=== PATIENT | female | born 1990 | race Caucasian/White ===

== ENCOUNTER 2017-04-22 23:07 | Emergency (ER) | payer SELFPAY ==
[2017-04-22 23:08] VITALS: BP 113/76; PULSE 98; RESP 14; TEMP 37.1; O2SAT 98; BMI 23.5
[2017-04-22] MEDS: 0.9% Normal Saline 1,000 ML 1000 ML IV (23:43)
[2017-04-22] MEDS: Ketorolac 30 MG/ML Syringe IV (23:45)
[2017-04-23] LABS: Absolute Neutrophil Count 6.6 X10^3/uL (2.0-7.7); Basophil# 0.02 X10^3/uL; Basophil% 0.2 % (0-1); Eosinophil# 0.39 X10^3/uL; Hematocrit 37.9 % (37-47); Lymphocyte % 19.3 % (19-41); Mean Corp Hgb Conc 31.7 g/gl (32-36); Mean Corpuscular Hgb 30.2 pg (27.0-32.0); Mean Corpuscular Volume 95.5 fL (81-99); Mean Platelet Vol. 9.3 fl (6.2-12.0); Monocyte# 0.91 X10^3/uL; Monocyte% 9.2 % (0-10); Neutrophil # 6.61 X10^3/uL (2.7-7.7); Neutrophil % 67.2 % (47-70); POSITIVE COUNT NO; POSITIVE DIFFERENTIAL NO; POSITIVE MORPHOLOGY NO; Platelet Count 313 K/mm3 (150-450); RBC Distribution Width CV 12.8 % (11.6-14.6); RBC Distribution Width SD 44.5 fl (35.1-43.9); Red Blood Count 3.97 M/mm3 (4.2-5.4); White Blood Count 9.8 K/mm3 (4.4-11.0)
--- NOTE | 2017-04-23 00:09 | ED.DCSUM_ITS ---
- ER Visit Summary Date of Service: 04/23/17 Chief Complaint: Abdominal pain History of Present Illness: The patient is a 27 F who presents with abdominal pain. It is been present for a week and a half. She has a history of ulcerative colitis. She states this feels similar to prior colitis flares. She reports initially up to 20 episodes of diarrhea per day. This improved and she only had 5 yesterday. She has had bright red blood per rectum with diarrhea. She states she is also had diffuse sharp stabbing abdominal pain. This has been improved with use of ibuprofen. However her pain worsened tonight so she presented here and she also a temperature of 100.3. She reports nausea without vomiting. Physical Examination: Afebrile vitals are unremarkable Moist mucous membranes Heart regular rate and rhythm Lungs are clear Abdomen soft nondistended she has some diffuse nonfocal tenderness but no guarding no rebound she does not appear to have a surgical abdomen Test Results: CBC normal. CMP and lipase unremarkable. Emergency Department Course and Treatment: Patient was treated with IV fluids Toradol and Phenergan. Patient is resting comfortably on reevaluation and does report symptomatic improvement. Given benign abdominal examination lack of fever or leukocytosis I do not believe imaging is necessary as I have very low clinical suspicion for acute surgical complication. Patient was given a prescription for prednisone, Cipro, Flagyl. She was advised to call Dr. Gonzales for outpatient follow-up. She understands return for new or worsening symptoms and was instructed on specific signs and symptoms to monitor for. All questions answered at bedside. Patient agreeable to plan. Treatment Plan: [] Disposition: Discharge Impression: Ulcerative colitis exacerbation This note was generated with [employer] dictation software. It may contain incorrect words, spelling, and punctuation that were not noted in review of the chart prior to signing ED Disposition - Plan for ED Patient: Chief Complaint: Abd Pain Referrals: Carlton Johnson DO [Primary Care Provider] -
[2017-04-23 00:17] LABS: ALB/GLOB Ratio 0.8 RATIO (0.9-2.4); AST(SGOT) 14 U/L (15-37); Alanine Aminotransfer ALT/SGPT 24 U/L (13-56); Albumin, Serum 3.1 g/dL (3.2-5.0); Alkaline Phosphatase 61 U/L (45-117); Anion Gap 8 (5-15); BUN 9 mg/dL (7-18); BUN/Creat Ratio 13.9 RATIO (10-20); Calcium,Total 8.5 mg/dL (8.5-10.1); Chloride 108 mmol/L (98-107); Creatinine, Serum 0.65 mg/dL (0.55-1.02); EST Glomerular Filtration Rate 115 mL/min (>60); Est Glom Filt Rate - Afr Amer 139 mL/min (>60); Estimated Creatinine Clearance 124.19 ml/min; Globulin 3.8 g/dL (2.2-4.2); Glucose 113 mg/dL (74-106); Lipase 203 U/L (73-393); Potassium 3.8 mmol/L (3.5-5.1); Protein, Total 6.9 g/dL (6.4-8.2); Sodium Level 141 mmol/L (136-145)
--- NOTE | 2017-04-23 00:25 | ED.DEP ---
ED Disposition - Plan for ED Patient: Chief Complaint: Abd Pain Instructions: ED Colitis Ulcerative Prescriptions: Prednisone [Deltasone] 60 mg PO DAILY #15 tab Ciprofloxacin [Cipro] 500 mg PO BID #14 tab Metronidazole [Flagyl] 500 mg PO TID #21 tab Referrals: Carlton Johnson DO [Primary Care Provider] - Glenroy Gonzales MD [STAFF PHYSICIAN] - Luis Gaston MD [STAFF PHYSICIAN] -
[2017-04-23 00:42] VITALS: BP 105/63; PULSE 82; RESP 16; O2SAT 97
--- NOTE | 2017-04-23 00:43 | ED.RN ---
IV SITE REMOVED, CATHETER TIP INTACT. BLEEDING CONTROLLED. DRESSING APPLIED TO THE SITE. PATIENT AND SPOUSE GIVEN VERBAL DISCHARGE INSTRUCTIONS. VERBAL UNDERSTANDING AT THIS TIME.
== END 2017-04-23 00:43 | disposition home or self-care (01) ==
PROVIDERS: Emergency Provider Emergency Medicine; Family Provider Student in an Organized Health Care Education/Training Program; PCP Student in an Organized Health Care Education/Training Program
DX: K51.911 Ulcerative colitis, unspecified with rectal bleeding (principal)
CPT/HCPCS: 80053; 83690; 85025; 96361; 96374; 96375; 99283; J7030; A4216

== ENCOUNTER 2017-05-10 13:22 | Inpatient (IN) | payer SELFPAY ==
[2017-05-10] VITALS (8 sets, daily range): BP systolic 94–107; BP diastolic 48–66; PULSE 94–129; RESP 14–18; TEMP 36.9–38.8; O2SAT 95–100; BMI 23.5; BMI 26.1
[2017-05-10] MEDS: 0.9% Normal Saline 1,000 ML 1000 ML IV (14:12)
[2017-05-10] MEDS: Ondansetron 4 MG/2 ML Vial IV ×3 (14:12→18:54)
[2017-05-10 14:26] LABS: Absolute Neutrophil Count 7.5 X10^3/uL (2.0-7.7); Basophil# 0.02 X10^3/uL; Basophil% 0.2 % (0-1); Eosinophil# 0.05 X10^3/uL; Eosinophils% 0.5 % (0-5); Hematocrit 38.5 % (37-47); Hemoglobin 12.2 g/dl (12.0-15.0); Lymphocyte % 12.3 % (19-41); Mean Corp Hgb Conc 31.7 g/gl (32-36); Mean Corpuscular Hgb 29.9 pg (27.0-32.0); Mean Corpuscular Volume 94.4 fL (81-99); Monocyte# 0.92 X10^3/uL; Monocyte% 9.5 % (0-10); Neutrophil # 7.52 X10^3/uL (2.7-7.7); Neutrophil % 77.4 % (47-70); Platelet Count 382 K/mm3 (150-450); RBC Distribution Width CV 13.2 % (11.6-14.6); Red Blood Count 4.08 M/mm3 (4.2-5.4); White Blood Count 9.7 K/mm3 (4.4-11.0)
[2017-05-10 14:28] LABS: POSITIVE COUNT NO; POSITIVE DIFFERENTIAL NO; POSITIVE MORPHOLOGY NO
[2017-05-10 14:47] LABS: ALB/GLOB Ratio 0.9 RATIO (0.9-2.4); AST(SGOT) 10 U/L (15-37); Alanine Aminotransfer ALT/SGPT 25 U/L (13-56); Albumin, Serum 2.9 g/dL (3.2-5.0); Alkaline Phosphatase 47 U/L (45-117); Anion Gap 8 (5-15); BUN 14 mg/dL (7-18); BUN/Creat Ratio 16.8 RATIO (10-20); Calcium,Total 7.6 mg/dL (8.5-10.1); Chloride 100 mmol/L (98-107); Creatinine, Serum 0.84 mg/dL (0.55-1.02); EST Glomerular Filtration Rate 86 mL/min (>60); Est Glom Filt Rate - Afr Amer 104 mL/min (>60); Globulin 3.3 g/dL (2.2-4.2); Glucose 128 mg/dL (74-106); Potassium 3.1 mmol/L (3.5-5.1); Protein, Total 6.2 g/dL (6.4-8.2); Sodium Level 134 mmol/L (136-145)
[2017-05-10 14:48] LABS: Lactic Acid 1.3 mmol/L (0.4-2.0)
[2017-05-10 14:50] LABS: Pregnancy, Serum, hCG Quali. NEGATIVE Negative (0-9 Nonpreg)
--- NOTE | 2017-05-10 15:35 | CT_ITS ---
STUDY: CT ABDOMEN AND PELVIS WITH CONTRAST REASON FOR EXAM: Female, 27 years old. Blood and mucus and stool, history of ulcerative colitis RADIATION DOSAGE (If Supplied By Facility): CTDIvol = ( 12.99 ) mGy, DLP = ( 675.79 ) mGycm TECHNIQUE: Transaxial images were obtained from the dome of the diaphragm to the symphysis pubis without oral contrast. 100 ml of Isovue 300 contrast was administered. Sagittal and coronal images were reconstructed. Individualized dose optimization techniques were used for this CT. COMPARISON: November 20, 2015 FINDINGS: The visualized lung bases are unremarkable. The visualized portions of the heart are within normal limits. The liver is normal in size. There is a small hypoattenuated nodule within the left lobe which demonstrates attenuation numbers higher than simple cyst. Bile ducts are not dilated. Normal gallbladder and extrahepatic biliary system. Normal spleen. Normal pancreas. Normal bilateral adrenal glands. Normal right kidney. Normal left kidney. Normal visualized stomach. There are multiple distended loops of small bowel within the upper abdomen with diffuse tapering distally most likely representing nonspecific focal ileus. There is no well-defined transition point to suggest partial small bowel obstruction. However there does appear to be mild submucosal thickening consistent with nonspecific enteritis There is diffuse distention of the colon containing fecal material. There does appear to be mild concentric thickening of the mauricio of the rectosigmoid without inflammatory stranding in the fat The appendix is visualized and appears normal. There are numerous mildly enlarged subcentimeter mesenteric nodes within the midabdomen in association with stranding in the fat consistent with nonspecific mesenteric lymphadenitis. Normal abdominal aorta. Normal inferior vena cava. Normal retroperitoneum. Normal urinary bladder. Uterus is slightly deviated towards the left. There is a left ovarian cyst measuring 2.34 x 1.92 cm and a small right adnexal cyst measuring approximately 2.9 x 1.36 cm Normal abdominal wall. Normal osseous structures. CT/Abdomen/Pelvis WITH Contrast IMPRESSION: Mild nonspecific enteritis in association with mesenteric lymphadenitis. No definitive evidence for small bowel obstruction. Mild thickening of the mauricio of the sigmoid colon consistent with inflammatory bowel disease although no evidence for acute inflammatory stranding at this time Incidental note made of a nodule in the left lobe of the liver which on current exam demonstrates attenuation characteristics higher than simple cyst which appears cystic on prior exam. The lesion has also decreased in size since that time. This may represent a complex cyst MRI would be helpful for further evaluation if clinically warranted. Electronically Signed: Maico Rodney MD at 16:24 EST , Service support ,
[2017-05-10 16:13] LABS: Bacteria 0 SEEN /hpf (None Seen); Mucous, Urine 0 SEEN /hpf (<or=2+); Red Blood Cells-Urine 0 SEEN /hpf (0-5)
[2017-05-10 16:16] LABS: Color, Urine Yellow (Yellow); Glucose, Dipstick Normal (Normal); Ketone-Dipstick 5 mg/dl (Negative); Leukocyte Esterase-Dipstick 25 /ul (Negative); Nitrite-Dipstick Negative (Negative); Occult Blood-Urine Negative /ul (Negative); Protein-Dipstick 30 mg/dl (Negative); Specific Gravity, Urine 1.005 (1.002-1.030); Urine Bilirubin Dipstick Negative (Negative); Urine Clarity Clear (Clear); Urine Urobilinogen Normal (Normal); Urine pH 6.5 (5.0 - 8.0)
[2017-05-10 16:33] LABS: Squamous Epithelial Cells - UA 0-5 SEEN /hpf (5-10); White Blood Cells 0-5 SEEN /hpf (0-5)
--- NOTE | 2017-05-10 16:43 | ED.VISSUMM ---
- ER Visit Summary Date of Service: 05/10/17 Chief Complaint: [Abdominal pain] History of Present Illness: The patient is a 27 F [with history of ulcerative colitis presents with abdominal pain for close to a month. Patient thought that she was having a flare of her ulcerative colitis month ago but waited 2 weeks to be seen patient apparently then was seen by emergency department and started on prednisone as well as Cipro and Flagyl. Patient initially got better while on the prednisone but then symptoms started to slowly worsen again. Patient woke up this morning vomiting and has been throwing up about every 15 minutes. Patient also complaining of watery stool that is bloody at times. Patient describes diffuse abdominal discomfort. Patient also states that she had a fever up to 104 this morning.] Physical Examination: [HEENT-PERRLA, EOMI. Cranial nerves II through XII grossly intact. TMs clear. Mucous membranes moist. No adenopathy. Cardiovascular-regular rate and rhythm without murmur or ectopy Lungs-clear to auscultation, chest wall stable without crepitus or subcu emphysema Abdomen-normoactive bowel sounds, soft patient has diffuse tenderness on palpation. More significant tenderness in the upper quadrants. There is no rebound, rigidity, or perineal signs. Extremities-intact ?4, normal range of motion, normal pulses, atraumatic] Test Results: [CBC with differential obtained showed a normal white count of 9.7, hemoglobin 12, hematocrit 38, platelets 382. Chemistries were unremarkable other than a slightly depressed potassium at 3.1 for which I did order 40 mEq potassium chloride p.o. Liver enzymes were normal. Lactate was normal 1.3. CT scan of the abdomen and pelvis with IV and p.o. contrast showed enteritis with lymph adenitis and some mild thickening of the sigmoid colon. Patient also had cyst in her liver that had gotten smaller from prior study but recommended at some point potentially obtaining an MRI to evaluate further as this may be a complex cyst.] Emergency Department Course and Treatment: [Patient was given a liter normal same fluid bolus and she was medicated with Zofran and morphine. Case will be discussed with hospitalist evaluate patient for admission. I did order stool cultures and C. difficile which patient has not been able to produce a stool since arriving in the emergency department.] Treatment Plan: [Admit for IV fluids and pain medication.] Disposition: [Admit] Impression: [Gastroenteritis Abdominal pain] This note was generated with [employer] dictation software. It may contain incorrect words, spelling, and punctuation that were not noted in review of the chart prior to signing ED Disposition - Plan for ED Patient: Chief Complaint: Abd Pain Referrals: Carlton Johnson DO [Primary Care Provider] -
--- NOTE | 2017-05-10 16:48 | ED.DCSUM_ITS ---
- ER Visit Summary Date of Service: 05/10/17 Chief Complaint: [Abdominal pain] History of Present Illness: The patient is a 27 F [with history of ulcerative colitis presents with abdominal pain for close to a month. Patient thought that she was having a flare of her ulcerative colitis month ago but waited 2 weeks to be seen patient apparently then was seen by emergency department and started on prednisone as well as Cipro and Flagyl. Patient initially got better while on the prednisone but then symptoms started to slowly worsen again. Patient woke up this morning vomiting and has been throwing up about every 15 minutes. Patient also complaining of watery stool that is bloody at times. Patient describes diffuse abdominal discomfort. Patient also states that she had a fever up to 104 this morning.] Physical Examination: [HEENT-PERRLA, EOMI. Cranial nerves II through XII grossly intact. TMs clear. Mucous membranes moist. No adenopathy. Cardiovascular-regular rate and rhythm without murmur or ectopy Lungs-clear to auscultation, chest wall stable without crepitus or subcu emphysema Abdomen-normoactive bowel sounds, soft patient has diffuse tenderness on palpation. More significant tenderness in the upper quadrants. There is no rebound, rigidity, or perineal signs. Extremities-intact ?4, normal range of motion, normal pulses, atraumatic] Test Results: [CBC with differential obtained showed a normal white count of 9.7 , hemoglobin 12, hematocrit 38, platelets 382. Chemistries were unremarkable other than a slightly depressed potassium at 3.1 for which I did order 40 mEq potassium chloride p.o. Liver enzymes were normal. Lactate was normal 1.3. CT scan of the abdomen and pelvis with IV and p.o. contrast showed enteritis with lymph adenitis and some mild thickening of the sigmoid colon. Patient also had cyst in her liver that had gotten smaller from prior study but recommended at some point potentially obtaining an MRI to evaluate further as this may be a complex cyst.] Emergency Department Course and Treatment: [Patient was given a liter normal same fluid bolus and she was medicated with Zofran and morphine. Case will be discussed with hospitalist evaluate patient for admission. I did order stool cultures and C. difficile which patient has not been able to produce a stool since arriving in the emergency department.] Treatment Plan: [Admit for IV fluids and pain medication.] Disposition: [Admit] Impression: [Gastroenteritis Abdominal pain] This note was generated with [employer] dictation software. It may contain incorrect words, spelling, and punctuation that were not noted in review of the chart prior to signing ED Disposition - Plan for ED Patient: Chief Complaint: Abd Pain Referrals: Carlton Johnson DO [Primary Care Provider] -
[2017-05-10] MEDS: oxyCODONE 5 MG Tablet PO (19:02)
[2017-05-10] MEDS: Acetaminophen 325 MG Tablet 650 MG PO (21:19)
[2017-05-10] MEDS: 0.9% NaCl Peripheral Flush Adult/Peds IV (21:20)
--- NOTE | 2017-05-10 21:45 | NURSING ---
LAB NOTIFIED OF STAT ORDERS
--- NOTE | 2017-05-10 22:17 | PCM.HP.STD ---
Problem List (1) Nausea and vomiting Status: Acute Qualifiers: Vomiting type: unspecified (2) Diarrhea Status: Acute Qualifiers: Diarrhea type: unspecified type Qualified Code(s): R19.7 - Diarrhea, unspecified (3) Blood in stool Status: Acute History of Present Illness Date of Admission: 05/10/17 Chief Complaint: Nausea and vomiting, blood in stool, diarrhea, generalized mid abdominal pain The patient is a 27 year old F who was seen in the emergency room at [facility] with complaints of bloody stools ?1 month intermittently, watery diarrhea over the past 24 hours, generalized midabdominal pain over the last 24 hours, and fever this morning-according to the patient up to 104 at home. She has a history of ulcerative colitis, she does not follow-up regularly with the GI doctor however and is on no medications chronically for her ulcerative colitis. Patient was placed on prednisone 3 weeks ago, she states she was unable to take a full dose because it made her too jittery, she was then placed on Cipro and Flagyl 2 weeks ago, and then her prednisone was restarted last week. Patient states that when she was placed on the prednisone 3 weeks ago, her symptoms improved and her blood in her stools partially resolved. Evaluation in the emergency room included labs today which showed normal white blood cell count, hemoglobin was 12.2, potassium was 3.1, patient was noted to be afebrile with a temp of 98.5, and patient a CT of her abdomen and pelvis which showed enteritis of the small intestine, nonspecific mesenteric lymphadenitis, and mild thickening of the sigmoid colon without evidence of severe inflammation. Still cannot be obtained from the patient for C. difficile testing at the time of her examination in the emergency room. Since the patient has been on oral antibiotics for 2 weeks, I feel that she most likely has a flareup of her ulcerative colitis, I have elected to admit her to [facility], treat with IV Solu-Medrol, and stop her antibiotics for now. We will obtain a C. difficile and enteric panel on the patient. IV fluids will be given to the patient and labs will be monitored. I do not feel she needs a consultation from gastroenterology at this time. Past Medical History Allergies amoxicillin trihydrate [From Augmentin] Adverse Reaction (Verified 05/10/17 13:26) Nausea/Vom/Diarrhea avocado Adverse Reaction (Verified 05/10/17 13:26) Nausea/Vom/Diarrhea potassium clavulanate [From Augmentin] Adverse Reaction (Verified 05/10/17 13:26) Nausea/Vom/Diarrhea Home Medications: Ambulatory Orders Medication Instructions Recorded Lactobacillus Combo No.10 1 each PO DAILY 12/22/15 [Probiotic] Multivit with Calcium,Iron,Min 1 each PO DAILY 12/22/15 [Multiple Vitamins For Women] Metronidazole [Flagyl] 500 mg PO TID #21 tab 04/23/17 Prednisone [Deltasone] 60 mg PO DAILY #15 tab 04/23/17 Desogestrel-Ethinyl Estradiol 1 tab PO DAILY 05/10/17 [Apri 28 Day Tablet] Surgical History: - - , D&C, wisdom tooth removal Psychiatric History: No pertinent psych hx [employer] History: No pertinent [employer] history Lives: Spouse/ Significant Other Smoking Status: Former smoker Tobacco Use: Non-smoker Alcohol: Occasional Drugs: None - *Family History Maternal History Items: - - Fibromyalgia Paternal History Items: No pertinent history Review of Systems Constitutional: Denies: Chills, Fever, Malaise, Weakness, Weight Change, Fatigue Eyes: Denies: Blurred vision, Cataracts, Conjunctivae Inflammation, Double vision, Drainage HEENT: Denies: Difficulty Hearing, Difficulty Swallowing, Dysphasia, Ear Pain, Eye Pain, Head Aches, Hearing Changes, Nasal bleeding, Nasal Congestion, Post Nasal Drip Cardiovascular: Denies: Chest Pain, Claudication, Chest Pressure, Chest Tightness, Edema, Heaviness, Palpitations Respiratory: Denies: Cough, Hemoptysis, Pleuritic Pain, Shortness of Breath, Shortness of breath at rest, Shortness of breath upon exertion Gastrointestinal: Reports: Abdominal Pain, Hematochezia, Nausea, Vomiting. Denies: Constipation, Diarrhea, Hematemesis, Melena Genitourinary: Denies: Dysuria, Frequency, Hematuria, Hesitancy, Incontinence, Nocturia, Urgency Gynecological: Denies: Breast symptoms Musculoskeletal: Denies: Back Pain, Foot Pain, Hand Pain, Joint Pain, Joint stiffness, Joint swelling, Joint Tenderness, Leg Pain Skin: Denies: Dryness, Jaundice, Pruritis, Rash Neurological: Denies: Blurred vision, Double vision, Change in Speech, Slurred speech, Difficulty swallowing, Focal weakness, Headaches, Numbness, Tingling Psychiatric: Denies: Anxiety, Depression, Homicidal Ideations, Suicidal Ideations Endocrine: Denies: Change in Body Habitus, Heat/ Cold Intolerance, Polydipsia, Polyuria Hematologic/ Lymphatic: Denies: Adenopathy, Anemia, Easy Bruising, Easy Bleeding, Petechiae, Purpura VTE Information - Inpt Only VTE Present on Admission: No VTE Mechan Device Prophylaxis: None VTE Pharm Prophylaxis ordered?: No Reason prophylaxis not ordered:: Treatment Not Indicated - low risk for VTE Patient Problems: Active and Suspected Problems Nausea and vomiting (Acute) Diarrhea (Acute) Blood in stool (Acute) - Physical Exam General: Alert, Oriented x3, Cooperative, No apparent distress, Well developed, Well nourished HEENT: Atraumatic, PERRLA, EOMI, Normocephalic Oral: Moist Mucosa Neck: Supple, No JVD, No Nuchal Rigidity, Trachea Midline, Thyroid Normal Size and Texture Lungs: Clear to auscultation, Normal air movement, No rhonchi, No wheeze, No rales Cardiovascular: Regular rate, Regular Rhythm, Normal S1, Normal S2, No murmurs Abdomen: Bowel Sounds Present, Soft, Non-Distended, Tender - Midabdominal tenderness is noted to palpation, no rebound abdominal tenderness was noted, No hernias noted Extremities: No clubbing, No cyanosis, No edema, Capillary Refill Less than 3 Seconds Skin: No rashes, No breakdown Musculoskeletal: No Tenderness to Palpation of Joints or Extremities, No Muscle Wasting Neurological: Cranial nerves II-XII grossly intact, Neuro grossly intact, Muscle tone normal, Sensory exam intact to light touch and pain, Coordination normal Psych/Mental Status: Normal Affect, Appropriate, Alert and oriented to time, place, person, mood and affect Vital Signs Temp Pulse Resp BP Pulse Ox 101.8 F H 108 H 18 107/57 L 95 05/10/17 21:24 05/10/17 21:24 05/10/17 21:24 05/10/17 21:24 05/10/17 21:24 Oxygen Delivery Method Room Air Weight: 75.705 kg Body Mass Index (BMI) 26.1 Intake and Output for Last 24 Hours 05/08/17 05/09/17 05/10/17 23:59 23:59 23:59 Intake Total 600 / 600 Balance 600 / 600 Microbiology Past 72 Hours 05/10/17 19:00 C. difficile DNA Amplification - Final Stool Assessment/Plan Active and Suspected Problems Nausea and vomiting (Acute) Diarrhea (Acute) Blood in stool (Acute) #1 acute flareup of ulcerative colitis-patient will be admitted to [facility], she will be given IV Solu-Medrol, IV fluids, she will be placed on a clear liquid diet, labs will be monitored, she will have a C. difficile test administered and an enteric stool panel gathered #2 hypokalemia-patient will be given potassium replacement if needed #3 febrile illness-etiology unclear at this point, it could be that the patient has a viral gastroenteritis or less likely she has C. difficile colitis from her antibiotic usage. Await stool testing #4 enteritis of the small intestine as indicated by CT-again this could be on the basis of a viral gastroenteritis, patient has no history of Crohn's disease. Code Visit Inpatient E&M: 39583 Init Hosp L3
[2017-05-10 22:24] LABS: Hematocrit 35.9 % (37-47); Hemoglobin 11.4 g/dl (12.0-15.0); Mean Corp Hgb Conc 31.8 g/gl (32-36); Mean Corpuscular Hgb 29.8 pg (27.0-32.0); Mean Platelet Vol. 8.9 fl (6.2-12.0); Platelet Count 289 K/mm3 (150-450); RBC Distribution Width CV 13.2 % (11.6-14.6); RBC Distribution Width SD 45.4 fl (35.1-43.9); Red Blood Count 3.82 M/mm3 (4.2-5.4); White Blood Count 6.9 K/mm3 (4.4-11.0)
[2017-05-10 22:25] LABS: Scan Indicated on CBC? Y/N NO
--- NOTE | 2017-05-10 22:27 | HP.PCM_ITS ---
Problem List (1) Nausea and vomiting Status: Acute Qualifiers: Vomiting type: unspecified (2) Diarrhea Status: Acute Qualifiers: Diarrhea type: unspecified type Qualified Code(s): R19.7 - Diarrhea, unspecified (3) Blood in stool Status: Acute History of Present Illness Date of Admission: 05/10/17 Chief Complaint: Nausea and vomiting, blood in stool, diarrhea, generalized mid abdominal pain The patient is a 27 year old F who was seen in the emergency room at [facility] with complaints of bloody stools ?1 month intermittently, watery diarrhea over the past 24 hours, generalized midabdominal pain over the last 24 hours, and fever this morning-according to the patient up to 104 at home. She has a history of ulcerative colitis, she does not follow-up regularly with the GI doctor however and is on no medications chronically for her ulcerative colitis. Patient was placed on prednisone 3 weeks ago, she states she was unable to take a full dose because it made her too jittery, she was then placed on Cipro and Flagyl 2 weeks ago, and then her prednisone was restarted last week. Patient states that when she was placed on the prednisone 3 weeks ago, her symptoms improved and her blood in her stools partially resolved. Evaluation in the emergency room included labs today which showed normal white blood cell count, hemoglobin was 12.2, potassium was 3.1, patient was noted to be afebrile with a temp of 98.5, and patient a CT of her abdomen and pelvis which showed enteritis of the small intestine, nonspecific mesenteric lymphadenitis, and mild thickening of the sigmoid colon without evidence of severe inflammation. Still cannot be obtained from the patient for C. difficile testing at the time of her examination in the emergency room. Since the patient has been on oral antibiotics for 2 weeks, I feel that she most likely has a flareup of her ulcerative colitis, I have elected to admit her to [facility], treat with IV Solu-Medrol, and stop her antibiotics for now. We will obtain a C. difficile and enteric panel on the patient. IV fluids will be given to the patient and labs will be monitored. I do not feel she needs a consultation from gastroenterology at this time. Past Medical History Allergies amoxicillin trihydrate [From Augmentin] Adverse Reaction (Verified 05/10/17 13: 26) Nausea/Vom/Diarrhea avocado Adverse Reaction (Verified 05/10/17 13:26) Nausea/Vom/Diarrhea potassium clavulanate [From Augmentin] Adverse Reaction (Verified 05/10/17 13:26 ) Nausea/Vom/Diarrhea Home Medications: Ambulatory Orders Medication Instructions Recorded Lactobacillus Combo No.10 1 each PO DAILY 12/22/15 [Probiotic] Multivit with Calcium,Iron,Min 1 each PO DAILY 12/22/15 [Multiple Vitamins For Women] Metronidazole [Flagyl] 500 mg PO TID #21 tab 04/23/17 Prednisone [Deltasone] 60 mg PO DAILY #15 tab 04/23/17 Desogestrel-Ethinyl Estradiol 1 tab PO DAILY 05/10/17 [Apri 28 Day Tablet] Surgical History: - - , D&C, wisdom tooth removal Psychiatric History: 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 Lives: Spouse/ Significant Other Smoking Status: Former smoker Tobacco Use: Non-smoker Alcohol: Occasional Drugs: None - *Family History Maternal History Items: - - Fibromyalgia Paternal History Items: No pertinent history Review of Systems Constitutional: Denies: Chills, Fever, Malaise, Weakness, Weight Change, Fatigue Eyes: Denies: Blurred vision, Cataracts, Conjunctivae Inflammation, Double vision, Drainage HEENT: Denies: Difficulty Hearing, Difficulty Swallowing, Dysphasia, Ear Pain, Eye Pain, Head Aches, Hearing Changes, Nasal bleeding, Nasal Congestion, Post Nasal Drip Cardiovascular: Denies: Chest Pain, Claudication, Chest Pressure, Chest Tightness, Edema, Heaviness, Palpitations Respiratory: Denies: Cough, Hemoptysis, Pleuritic Pain, Shortness of Breath, Shortness of breath at rest, Shortness of breath upon exertion Gastrointestinal: Reports: Abdominal Pain, Hematochezia, Nausea, Vomiting. Denies: Constipation, Diarrhea, Hematemesis, Melena Genitourinary: Denies: Dysuria, Frequency, Hematuria, Hesitancy, Incontinence, Nocturia, Urgency Gynecological: Denies: Breast symptoms Musculoskeletal: Denies: Back Pain, Foot Pain, Hand Pain, Joint Pain, Joint stiffness, Joint swelling, Joint Tenderness, Leg Pain Skin: Denies: Dryness, Jaundice, Pruritis, Rash Neurological: Denies: Blurred vision, Double vision, Change in Speech, Slurred speech, Difficulty swallowing, Focal weakness, Headaches, Numbness, Tingling Psychiatric: Denies: Anxiety, Depression, Homicidal Ideations, Suicidal Ideations Endocrine: Denies: Change in Body Habitus, Heat/ Cold Intolerance, Polydipsia, Polyuria Hematologic/ Lymphatic: Denies: Adenopathy, Anemia, Easy Bruising, Easy Bleeding , Petechiae, Purpura VTE Information - Inpt Only VTE Present on Admission: No VTE Mechan Device Prophylaxis: None VTE Pharm Prophylaxis ordered?: No Reason prophylaxis not ordered:: Treatment Not Indicated - low risk for VTE Patient Problems: Active and Suspected Problems Nausea and vomiting (Acute) Diarrhea (Acute) Blood in stool (Acute) - Physical Exam General: Alert, Oriented x3, Cooperative, No apparent distress, Well developed, Well nourished HEENT: Atraumatic, PERRLA, EOMI, Normocephalic Oral: Moist Mucosa Neck: Supple, No JVD, No Nuchal Rigidity, Trachea Midline, Thyroid Normal Size and Texture Lungs: Clear to auscultation, Normal air movement, No rhonchi, No wheeze, No rales Cardiovascular: Regular rate, Regular Rhythm, Normal S1, Normal S2, No murmurs Abdomen: Bowel Sounds Present, Soft, Non-Distended, Tender - Midabdominal tenderness is noted to palpation, no rebound abdominal tenderness was noted, No hernias noted Extremities: No clubbing, No cyanosis, No edema, Capillary Refill Less than 3 Seconds Skin: No rashes, No breakdown Musculoskeletal: No Tenderness to Palpation of Joints or Extremities, No Muscle Wasting Neurological: Cranial nerves II-XII grossly intact, Neuro grossly intact, Muscle tone normal, Sensory exam intact to light touch and pain, Coordination normal Psych/Mental Status: Normal Affect, Appropriate, Alert and oriented to time, place, person, mood and affect Vital Signs Temp Pulse Resp BP Pulse Ox 101.8 F H 108 H 18 107/57 L 95 05/10/17 21:24 05/10/17 21:24 05/10/17 21:24 05/10/17 21:24 05/10/17 21:24 Oxygen Delivery Method Room Air Weight: 75.705 kg Body Mass Index (BMI) 26.1 Intake and Output for Last 24 Hours 05/08/17 05/09/17 05/10/17 23:59 23:59 23:59 Intake Total 600 / 600 Balance 600 / 600 Microbiology Past 72 Hours 05/10/17 19:00 C. difficile DNA Amplification - Final Stool Assessment/Plan Active and Suspected Problems Nausea and vomiting (Acute) Diarrhea (Acute) Blood in stool (Acute) #1 acute flareup of ulcerative colitis-patient will be admitted to [facility], she will be given IV Solu-Medrol, IV fluids, she will be placed on a clear liquid diet, labs will be monitored, she will have a C. difficile test administered and an enteric stool panel gathered #2 hypokalemia-patient will be given potassium replacement if needed #3 febrile illness-etiology unclear at this point, it could be that the patient has a viral gastroenteritis or less likely she has C. difficile colitis from her antibiotic usage. Await stool testing #4 enteritis of the small intestine as indicated by CT-again this could be on the basis of a viral gastroenteritis, patient has no history of Crohn's disease. Code Visit Inpatient E&M: 04057 Init Hosp L3
[2017-05-10 22:29] LABS: International Normalized Ratio 1.4; Partial Thromboplast Time 33.3 Seconds (24.1-36.2); Prothrombin Time (Protime)PT. 16.6 SECONDS (11.7-14.9)
[2017-05-10 22:52] LABS: ALB/GLOB Ratio 0.9 RATIO (0.9-2.4); AST(SGOT) 9 U/L (15-37); Alanine Aminotransfer ALT/SGPT 21 U/L (13-56); Albumin, Serum 2.7 g/dL (3.2-5.0); Alkaline Phosphatase 46 U/L (45-117); Anion Gap 8 (5-15); BUN 11 mg/dL (7-18); BUN/Creat Ratio 14.8 RATIO (10-20); Calcium,Total 7.1 mg/dL (8.5-10.1); Chloride 99 mmol/L (98-107); Creatinine, Serum 0.74 mg/dL (0.55-1.02); EST Glomerular Filtration Rate 98 mL/min (>60); Est Glom Filt Rate - Afr Amer 119 mL/min (>60); Estimated Creatinine Clearance 109.08 ml/min; Glucose 142 mg/dL (74-106); Potassium 3.4 mmol/L (3.5-5.1); Protein, Total 5.7 g/dL (6.4-8.2); Sodium Level 132 mmol/L (136-145)
[2017-05-10 22:58] LABS: Lactic Acid 2.1 mmol/L (0.4-2.0)
[2017-05-10] MEDS: 0.9% Normal Saline 1,000 ML 125 ML IV (23:13)
[2017-05-11 02:16] LABS: Reflex Lactate? Y
[2017-05-11 03:22] LABS: Absolute Lymphocyte Count 1.02 X10^3/ul (0.83-4.51); Absolute Neutrophil Count 10.1 X10^3/uL (2.0-7.7); Basophil# 0.03 X10^3/uL; Basophil% 0.3 % (0-1); Eosinophil# 0.02 X10^3/uL; Eosinophils% 0.2 % (0-5); Hematocrit 37.2 % (37-47); Hemoglobin 12.1 g/dl (12.0-15.0); Lymphocyte # 1.02 X10^3/ul (4.0); Lymphocyte % 8.8 % (19-41); Mean Corp Hgb Conc 32.5 g/gl (32-36); Mean Corpuscular Volume 95.4 fL (81-99); Mean Platelet Vol. 8.8 fl (6.2-12.0); Monocyte# 0.47 X10^3/uL; Neutrophil # 10.07 X10^3/uL (2.7-7.7); Neutrophil % 86.4 % (47-70); Platelet Count 296 K/mm3 (150-450); RBC Distribution Width CV 13.1 % (11.6-14.6); RBC Distribution Width SD 43.9 fl (35.1-43.9); White Blood Count 11.6 K/mm3 (4.4-11.0)
[2017-05-11 03:39] LABS: Lactic Acid 1.1 mmol/L (0.4-2.0)
[2017-05-11 04:02] LABS: ALB/GLOB Ratio 0.8 RATIO (0.9-2.4); AST(SGOT) 10 U/L (15-37); Alanine Aminotransfer ALT/SGPT 22 U/L (13-56); Albumin, Serum 2.6 g/dL (3.2-5.0); Alkaline Phosphatase 46 U/L (45-117); Anion Gap 6 (5-15); BUN 8 mg/dL (7-18); BUN/Creat Ratio 10.1 RATIO (10-20); Calcium,Total 7.3 mg/dL (8.5-10.1); Chloride 103 mmol/L (98-107); EST Glomerular Filtration Rate 91 mL/min (>60); Est Glom Filt Rate - Afr Amer 110 mL/min (>60); Globulin 3.2 g/dL (2.2-4.2); Glucose 141 mg/dL (74-106); Potassium 3.5 mmol/L (3.5-5.1); Protein, Total 5.8 g/dL (6.4-8.2); Sodium Level 136 mmol/L (136-145)
[2017-05-11 04:05] LABS: Differential Indicated SCAN CRITERIA MET; POSITIVE COUNT NO; POSITIVE DIFFERENTIAL NO; POSITIVE MORPHOLOGY YES
[2017-05-11 05:00] VITALS: BP 96/53; PULSE 78; RESP 16; TEMP 37.2; O2SAT 96
[2017-05-11 07:50] VITALS: BP 106/70; PULSE 83; RESP 18; TEMP 36.7; O2SAT 98
[2017-05-11] MEDS: oxyCODONE 5 MG Tablet PO (07:53)
--- NOTE | 2017-05-11 09:28 | PN_ITS ---
Patient Problems: Active and Suspected Problems Nausea and vomiting (Acute) Diarrhea (Acute) Blood in stool (Acute) Subjective: CC; acute exacerbation of UC. This is a 27-year-old female who presents with acute exacerbation of UC. She reports less diarrhea, no hematochezia , she only has a mild abdominal pain. Vitals/I&O's: Vital Signs Temp Pulse Resp BP Pulse Ox 98.0 F 83 18 106/70 98 05/11/17 07:50 05/11/17 07:50 05/11/17 07:50 05/11/17 07:50 05/11/17 07:50 Oxygen Delivery Method Room Air Weight: 75.705 kg Body Mass Index (BMI) 26.1 Intake and Output for Last 24 Hours 05/09/17 05/10/17 05/11/17 23:59 23:59 23:59 Intake Total 610 / 610 779 / 779 Balance 610 / 610 779 / 779 General: Alert, Oriented x3 Neck: Supple, No JVD Lungs: Clear to auscultation Cardiovascular: Regular rate, Normal S1, Normal S2 Abdomen: Bowel Sounds Present, Soft, Non Tender Extremities: No clubbing, No edema Microbiology Past 72 Hours 05/10/17 19:00 Stool C. difficile DNA Amplification - Final Laboratory Results 05/10/17 21:58: WBC 6.9, RBC 3.82 L, Hgb 11.4 L, Hct 35.9 L, MCV 94.0, MCH 29.8 , MCHC 31.8 L, RDW 13.2, RDW Differential 45.4 H, Plt Count 289, MPV 8.9 05/10/17 21:58: PT 16.6 H, INR 1.4, APTT 33.3 05/10/17 21:58: Sodium 132 L, Potassium 3.4 L, Chloride 99, Carbon Dioxide 25.0 , Anion Gap 8, BUN 11, Creatinine 0.74, Estim Creat Clear Calc 109.08, Est GFR ( MDRD) Af Amer 119, Est GFR (MDRD) Non-Af 98, BUN/Creatinine Ratio 14.8, Glucose 142 H, Calcium 7.1 L, Total Bilirubin 0.40, AST 9 L, ALT 21, Alkaline Phosphatase 46, Total Protein 5.7 L, Albumin 2.7 L, Globulin 3.0, Albumin/ Globulin Ratio 0.9 05/10/17 21:58: Lactic Acid 2.1 H 05/11/17 02:50: WBC 11.6 H, RBC 3.90 L, Hgb 12.1, Hct 37.2, MCV 95.4, MCH 31.0, MCHC 32.5, RDW 13.1, RDW Differential 43.9, Plt Count 296, MPV 8.8, Immature Gran % (Auto) 0.300, Neut % (Auto) 86.4 H, Lymph % (Auto) 8.8 L, Ponce % (Auto) 4.0, Eos % (Auto) 0.2, Baso % (Auto) 0.3, Absolute Neuts (auto) 10.1 H, Absolute Lymphs (auto) 1.02, Total Counted Not Reportable 05/11/17 02:50: Sodium 136, Potassium 3.5, Chloride 103, Carbon Dioxide 27.0, Anion Gap 6, BUN 8, Creatinine 0.80, Estim Creat Clear Calc 100.90, Est GFR ( MDRD) Af Amer 110, Est GFR (MDRD) Non-Af 91, BUN/Creatinine Ratio 10.1, Glucose 141 H, Calcium 7.3 L, Total Bilirubin 0.30, AST 10 L, ALT 22, Alkaline Phosphatase 46, Total Protein 5.8 L, Albumin 2.6 L, Globulin 3.2, Albumin/ Globulin Ratio 0.8 L 05/11/17 02:50: Lactic Acid 1.1 Current Medications Acetaminophen (Tylenol) 650 mg PO Q6H PRN PRN PRN Reason: Mild Pain (1-3)/Temp > 100.7 F Last Admin: 05/10/17 21:19 Dose: 650 mg Sodium Chloride () 1,000 mls @ 125 mls/hr IV .Q8H [facility] Last Admin: 05/10/17 23:13 Dose: 125 mls/hr Methylprednisolone (Solu-Medrol) 40 mg IV Q8 [facility] Last Admin: 05/11/17 05:21 Dose: 40 mg Nutritional Formula (Lactose Free) (Ensure Clear) 120 ml PO 4X/DAY [facility] Last Admin: 05/10/17 21:21 Dose: 120 ml Ondansetron HCl (Zofran) 4 mg IV Q6H PRN PRN PRN Reason: NAUSEA Last Admin: 05/10/17 18:54 Dose: 4 mg Oxycodone HCl (Oxyir) 5 - 10 mg PO Q4H PRN PRN PRN Reason: MOD-SEVERE PAIN (4-10/10) Last Admin: 05/11/17 07:53 Dose: 10 mg Sodium Chloride () 5 - 30 ml IV UD PRN PRN Reason: SALINE FLUSH Last Admin: 05/10/17 21:20 Dose: 20 ml Assessment/Plan Active and Suspected Problems Nausea and vomiting (Acute) Diarrhea (Acute) Blood in stool (Acute) 1 .Acute Exacerbation of ulcerative colitis; continue on IV Solu-Medrol, I will start him on the Mesalamine . He is recommended to follow with her GI physician as an outpatient. 2. headache; she denies history of migraine , as needed tramadol for now. 3. Hypokalemia; will replace with PO potassium chloride as needed 4. Code Visit Inpatient E&M: 56103 Subs Hosp L2
[2017-05-11] MEDS: Mesalamine 1.2 GM Tablet 2.4 GM PO (10:20)
[2017-05-11 12:05] VITALS: BP 98/55; PULSE 83; RESP 18; TEMP 36.2; O2SAT 97
--- NOTE | 2017-05-11 12:53 | CASEMGMT ---
Addendum entered by Regi Heredia 05/11/17 16:09: SW brought pt the two week supply of Lialda from the retail pharmacy, told her to keep it safe until she is discharged. SW reiterated if she comes in again this year and she still does not have insurance, we would not be able to use hospital assist for the meds. Pt states understanding, thanked SW for the assist. No further needs anticipated. MILAGRO Martienz, ELECTRONIC BENCH TECHNICIAN Original Note: Addendum entered by Regi Heredia 05/11/17 14:59: SW did get script from physician for two weeks worth of Lialda, tubed it to the retail pharmacy with the prescription assistance form. SW will case picker for pt when ready. MILAGRO Martinez, ELECTRONIC BENCH TECHNICIAN Original Note: Addendum entered by Regi Heredia 05/11/17 13:17: SW spoke w/the retail pharmacy, the retail cost is over $500 for a 30 day supply, of the Lialda(appears that [place] was a similar med). Ignacio was not able to tell SW the exact cost. SW spoke w/the pt again, inquired if she was on this med when she had Medicaid in the past--she states no, she was on her 's insurance through his work. At that time they had to pay for it and get reimbursed, and at that time the cost was $800/month. SW explained we do not know if it will be covered by Medicaid once that is active or not, SW will check w/physician about any other options and see if he can write a script today if this is the only alternative, so we can use the hospital assistance program. SW explained did check on the cost and it is still very expensive, also let her know the med that she is being prescribed is Lialda. SW also explained will research any assistance programs for the med. SW spoke w/Dr. Stauffer, he states that this is the med that pt does need, the Lialda. SW asked if he can write a two week script today, he states he will try to do so. SW looked online and did find an application for assist through the maker of the Lialda, [employer]. BEVERLEY spoke w/pt again, explained spoke w/doctor, and he is confirming that Lialda is med she needs to be on. SW gave pt the pt the [employer] assistance application with the contact clerk at [facility] who can assist(pt's PCP is with [facility]). BEVERLEY explained did ask the physician to write a two week script and if SW gets this today SW can use the hospital assistance program. If physician is not able to write the script today, SW suggested to pt she just get a few of the pills on the script filled, and can go to [employer] for assist on Sunday. Pt states understanding. If physician writes the script today, SW will bring it to the retail pharmacy and use the hospital assist for pt. MILAGRO Martinez, MIRIAM Original Note: SW spoke w/pt as she is self pay. Pt did recently apply for Medicaid and her plans to bring the financial information to [facility] soon. BEVERLEY gave pt some resources, including information on 211, [employer], prescription assistance programs, 211, and [facility] assist. Pt does have a PCP, she sees. Dr. Johnson. Pt states the doctor is planning to send her home on [place] and it's $800/month. BEVERLEY explained will speak w/physician about this. SW texted physician, will speak w/him when he calls back. MILAGRO Martinez, ELECTRONIC BENCH TECHNICIAN
[2017-05-11] MEDS: 0.9% NaCl Peripheral Flush Adult/Peds IV ×2 (14:17→21:29)
[2017-05-11] MEDS: 0.9% Normal Saline 1,000 ML 125 ML IV (15:00)
[2017-05-11 20:12] VITALS: BP 103/63; PULSE 82; RESP 16; TEMP 36.7; O2SAT 99
[2017-05-12] MEDS: 0.9% Normal Saline 1,000 ML 125 ML IV ×3 (00:05→19:54)
[2017-05-12 02:30] VITALS: BP 92/56; PULSE 68; RESP 14; TEMP 36.5; O2SAT 98
[2017-05-12] MEDS: 0.9% NaCl Peripheral Flush Adult/Peds IV (06:03)
--- NOTE | 2017-05-12 06:07 | NURSING ---
This am patient c/o some abd pain, cramping, and bloating. Denies any N/V/D. Patients cheeks noted as being flushed, temp 97.8 PO. Will continue to monitor.
[2017-05-12 07:35] VITALS: BP 107/65; PULSE 64; RESP 12; TEMP 36.9; O2SAT 100
--- NOTE | 2017-05-12 09:23 | PCM.PN.HOSP ---
Patient Problems: Active and Suspected Problems Nausea and vomiting (Acute) Diarrhea (Acute) Blood in stool (Acute) Exacerbation of ulcerative colitis (Acute) Subjective: feeling better. tolerated some oral. still w hematochezia. still w abd pain. Vitals/I&O's: Vital Signs Temp Pulse Resp BP Pulse Ox 36.9 C 64 12 107/65 100 05/12/17 07:35 05/12/17 07:35 05/12/17 07:35 05/12/17 07:35 05/12/17 07:35 Oxygen Delivery Method Room Air Weight: 75.705 kg Body Mass Index (BMI) 26.1 Intake and Output for Last 24 Hours 05/10/17 05/11/17 05/12/17 23:59 23:59 23:59 Intake Total 610 / 610 4689 / 4689 1467 / 1467 Balance 610 / 610 4689 / 4689 1467 / 1467 General: Alert, Cooperative, No apparent distress HEENT: Atraumatic, Normocephalic Neck: No Nodes, Thyroid Normal Size and Texture Lungs: Clear to auscultation, Normal air movement, No rhonchi, No wheeze Cardiovascular: Regular rate, Regular Rhythm, Normal S1, Normal S2, No murmurs Abdomen: Bowel Sounds Present, Soft, Non-Distended, No Hepato-splenomegaly, Tender, - - no rebound. no guarding Extremities: No edema, No Calf Tenderness Psych/Mental Status: Normal Affect, Appropriate Microbiology Past 72 Hours 05/10/17 19:00 Stool Enteric Bacteriology - Final 05/10/17 19:00 Stool C. difficile DNA Amplification - Final Current Medications Acetaminophen (Tylenol) 650 mg PO Q6H PRN PRN PRN Reason: Mild Pain (1-3)/Temp > 100.7 F Last Admin: 05/10/17 21:19 Dose: 650 mg Sodium Chloride () 1,000 mls @ 125 mls/hr IV .Q8H [facility] Last Admin: 05/12/17 00:17 Dose: Not Given Mesalamine (Lialda) 2.4 gm PO DAILY [facility] Last Admin: 05/11/17 10:20 Dose: 2.4 gm Methylprednisolone (Solu-Medrol) 40 mg IV Q8 [facility] Last Admin: 05/12/17 06:03 Dose: 40 mg Nutritional Formula (Lactose Free) (Ensure Clear) 120 ml PO 4X/DAY [facility] Last Admin: 05/11/17 21:29 Dose: 120 ml Ondansetron HCl (Zofran) 4 mg IV Q6H PRN PRN PRN Reason: NAUSEA Last Admin: 05/10/17 18:54 Dose: 4 mg Sodium Chloride () 5 - 30 ml IV UD PRN PRN Reason: SALINE FLUSH Last Admin: 05/12/17 06:03 Dose: 10 ml Tramadol HCl (Ultram (G)) 50 mg PO TID PRN PRN PRN Reason: MODERATE PAIN (4-5/10) Last Admin: 05/11/17 14:21 Dose: 50 mg Assessment/Plan Active and Suspected Problems Nausea and vomiting (Acute) Diarrhea (Acute) Blood in stool (Acute) Exacerbation of ulcerative colitis (Acute) 1. exacerbation of UC minimal improvement continue w solumedrol add empiric cipro, flagyl on mesalamine symptoms have been going on for 1 month anticipate, upon discharge, pred 40 w/o taper until sees GI (Tatiana at [facility]) Pt does have a today, I told I could discharge her, but told her I am concerned that she may wind up back in the hospital. I recommended she stay, she agreed to stay with small bowel involvement, could this Crohn's. Won't change anything at this time, however. 2. Liver lesion previously present on imaging. outpt MRI maybe a cyst 3. severe sepsis not POA, but did develop during hospitalization d/t #1 clinically resolved 4. DVT proph: SCDs. Chemical prophylaxis contraindicated w hematochezia. Code Visit Inpatient E&M: 20802 Subs Hosp L2
--- NOTE | 2017-05-12 09:33 | PN_ITS ---
Patient Problems: Active and Suspected Problems Nausea and vomiting (Acute) Diarrhea (Acute) Blood in stool (Acute) Exacerbation of ulcerative colitis (Acute) Subjective: feeling better. tolerated some oral. still w hematochezia. still w abd pain. Vitals/I&O's: Vital Signs Temp Pulse Resp BP Pulse Ox 36.9 C 64 12 107/65 100 05/12/17 07:35 05/12/17 07:35 05/12/17 07:35 05/12/17 07:35 05/12/17 07:35 Oxygen Delivery Method Room Air Weight: 75.705 kg Body Mass Index (BMI) 26.1 Intake and Output for Last 24 Hours 05/10/17 05/11/17 05/12/17 23:59 23:59 23:59 Intake Total 610 / 610 4689 / 4689 1467 / 1467 Balance 610 / 610 4689 / 4689 1467 / 1467 General: Alert, Cooperative, No apparent distress HEENT: Atraumatic, Normocephalic Neck: No Nodes, Thyroid Normal Size and Texture Lungs: Clear to auscultation, Normal air movement, No rhonchi, No wheeze Cardiovascular: Regular rate, Regular Rhythm, Normal S1, Normal S2, No murmurs Abdomen: Bowel Sounds Present, Soft, Non-Distended, No Hepato-splenomegaly, Tender, - - no rebound. no guarding Extremities: No edema, No Calf Tenderness Psych/Mental Status: Normal Affect, Appropriate Microbiology Past 72 Hours 05/10/17 19:00 Stool Enteric Bacteriology - Final 05/10/17 19:00 Stool C. difficile DNA Amplification - Final Current Medications Acetaminophen (Tylenol) 650 mg PO Q6H PRN PRN PRN Reason: Mild Pain (1-3)/Temp > 100.7 F Last Admin: 05/10/17 21:19 Dose: 650 mg Sodium Chloride () 1,000 mls @ 125 mls/hr IV .Q8H [facility] Last Admin: 05/12/17 00:17 Dose: Not Given Mesalamine (Lialda) 2.4 gm PO DAILY [facility] Last Admin: 05/11/17 10:20 Dose: 2.4 gm Methylprednisolone (Solu-Medrol) 40 mg IV Q8 [facility] Last Admin: 05/12/17 06:03 Dose: 40 mg Nutritional Formula (Lactose Free) (Ensure Clear) 120 ml PO 4X/DAY [facility] Last Admin: 05/11/17 21:29 Dose: 120 ml Ondansetron HCl (Zofran) 4 mg IV Q6H PRN PRN PRN Reason: NAUSEA Last Admin: 05/10/17 18:54 Dose: 4 mg Sodium Chloride () 5 - 30 ml IV UD PRN PRN Reason: SALINE FLUSH Last Admin: 05/12/17 06:03 Dose: 10 ml Tramadol HCl (Ultram (G)) 50 mg PO TID PRN PRN PRN Reason: MODERATE PAIN (4-5/10) Last Admin: 05/11/17 14:21 Dose: 50 mg Assessment/Plan Active and Suspected Problems Nausea and vomiting (Acute) Diarrhea (Acute) Blood in stool (Acute) Exacerbation of ulcerative colitis (Acute) 1. exacerbation of UC * minimal improvement * continue w solumedrol * add empiric cipro, flagyl * on mesalamine * symptoms have been going on for 1 month * anticipate, upon discharge, pred 40 w/o taper until sees GI (Tatiana at [facility]) * Pt does have a today, I told I could discharge her, but told her I am concerned that she may wind up back in the hospital. I recommended she stay, she agreed to stay * with small bowel involvement, could this Crohn's. Won't change anything at this time, however. 2. Liver lesion * previously present on imaging. * outpt MRI * maybe a cyst 3. severe sepsis * not POA, but did develop during hospitalization * d/t #1 * clinically resolved 4. DVT proph: SCDs. Chemical prophylaxis contraindicated w hematochezia. Code Visit Inpatient E&M: 27064 Subs Hosp L2
[2017-05-12] MEDS: Mesalamine 1.2 GM Tablet 2.4 GM PO (09:41)
[2017-05-12] MEDS: Ciprofloxacin 400 MG/200 ML BAG 200 MG IV ×2 (10:50→21:57)
[2017-05-12] MEDS: Acetaminophen 325 MG Tablet 650 MG PO (10:50)
[2017-05-12] MEDS: Pantoprazole Sodium 40 MG Tablet PO (10:51)
[2017-05-12 13:14] VITALS: BP 109/61; PULSE 66; RESP 14; TEMP 37.1; O2SAT 100
[2017-05-12 19:52] VITALS: BP 105/57; PULSE 65; RESP 16; TEMP 36.3; O2SAT 100
[2017-05-13 02:00] VITALS: BP 110/68; PULSE 64; RESP 14; TEMP 36.9; O2SAT 100
[2017-05-13 06:10] LABS: Absolute Lymphocyte Count 1.56 X10^3/ul (0.83-4.51); Absolute Neutrophil Count 7.4 X10^3/uL (2.0-7.7); Basophil# 0.01 X10^3/uL; Basophil% 0.1 % (0-1); Eosinophil# 0.01 X10^3/uL; Eosinophils% 0.1 % (0-5); Hematocrit 31.5 % (37-47); Hemoglobin 9.9 g/dl (12.0-15.0); Lymphocyte # 1.56 X10^3/ul (4.0); Lymphocyte % 16.3 % (19-41); Mean Corp Hgb Conc 31.4 g/gl (32-36); Mean Corpuscular Hgb 30.2 pg (27.0-32.0); Mean Platelet Vol. 9.1 fl (6.2-12.0); Monocyte# 0.59 X10^3/uL; Monocyte% 6.1 % (0-10); Neutrophil % 77.1 % (47-70); Platelet Count 216 K/mm3 (150-450); RBC Distribution Width CV 13.9 % (11.6-14.6); RBC Distribution Width SD 48.6 fl (35.1-43.9); Red Blood Count 3.28 M/mm3 (4.2-5.4); White Blood Count 9.6 K/mm3 (4.4-11.0)
[2017-05-13 06:27] LABS: Anion Gap 9 (5-15); BUN 7 mg/dL (7-18); BUN/Creat Ratio 11.5 RATIO (10-20); Chloride 106 mmol/L (98-107); Creatinine, Serum 0.61 mg/dL (0.55-1.02); EST Glomerular Filtration Rate 123 mL/min (>60); Est Glom Filt Rate - Afr Amer 149 mL/min (>60); Estimated Creatinine Clearance 132.33 ml/min; Glucose 124 mg/dL (74-106); Potassium 3.7 mmol/L (3.5-5.1); Sodium Level 141 mmol/L (136-145)
[2017-05-13 06:30] LABS: POSITIVE COUNT NO; POSITIVE DIFFERENTIAL NO; POSITIVE MORPHOLOGY NO
[2017-05-13] MEDS: 0.9% Normal Saline 1,000 ML 125 ML IV (06:31)
[2017-05-13 07:41] VITALS: BP 116/72; PULSE 55; RESP 12; TEMP 37; O2SAT 99
--- NOTE | 2017-05-13 08:24 | PCM.PN.HOSP ---
Patient Problems: Active and Suspected Problems Exacerbation of ulcerative colitis (Acute) Nausea and vomiting (Acute) Diarrhea (Acute) Blood in stool (Acute) Subjective: Feeling well. Tolerating some diet. Still some abdominal bloating but better than it was. Patient did have some diarrhea then followed up by a more solid stool. Patient still does have hematochezia but that is improved as well. She states that she is feeling ready to go home today. Vitals/I&O's: Vital Signs Temp Pulse Resp BP Pulse Ox 37.0 C 55 L 12 116/72 99 05/13/17 07:41 05/13/17 07:41 05/13/17 07:41 05/13/17 07:41 05/13/17 07:41 Oxygen Delivery Method Room Air Weight: 75.705 kg Body Mass Index (BMI) 26.1 Intake and Output for Last 24 Hours 05/11/17 05/12/17 05/13/17 23:59 23:59 23:59 Intake Total 4689 / 4689 3881 / 3881 2120 Balance 4689 / 4689 3881 / 3881 2120 General: Alert, Cooperative, No apparent distress HEENT: Atraumatic, Normocephalic Lungs: Clear to auscultation, Normal air movement, No rhonchi, No wheeze Cardiovascular: Regular rate, Regular Rhythm, Normal S1, Normal S2, No murmurs Abdomen: Bowel Sounds Present, Soft, Non Tender, Non-Distended, No Hepato-splenomegaly Extremities: No edema, No Calf Tenderness Skin: No rashes, No breakdown Psych/Mental Status: Normal Affect, Appropriate Microbiology Past 72 Hours 05/10/17 22:07 Blood Culture (Wb) - Right Hand Blood Culture - Preliminary No growth in 48 hours. 05/10/17 21:58 Blood Culture (Wb) - Anticubital Right Blood Culture - Preliminary No growth in 48 hours. 05/10/17 19:00 Stool Enteric Bacteriology - Final 05/10/17 19:00 Stool C. difficile DNA Amplification - Final Laboratory Results 05/13/17 05:43: WBC 9.6, RBC 3.28 L, Hgb 9.9 L, Hct 31.5 L, MCV 96.0, MCH 30.2, MCHC 31.4 L, RDW 13.9, RDW Differential 48.6 H, Plt Count 216, MPV 9.1, Immature Gran % (Auto) 0.300, Neut % (Auto) 77.1 H, Lymph % (Auto) 16.3 L, Beltrami % (Auto) 6.1, Eos % (Auto) 0.1, Baso % (Auto) 0.1, Absolute Neuts (auto) 7.4, Absolute Lymphs (auto) 1.56, Total Counted Not Reportable 05/13/17 05:43: Sodium 141, Potassium 3.7, Chloride 106, Carbon Dioxide 26.0, Anion Gap 9, BUN 7, Creatinine 0.61, Estim Creat Clear Calc 132.33, Est GFR (MDRD) Af Amer 149, Est GFR (MDRD) Non-Af 123, BUN/Creatinine Ratio 11.5, Glucose 124 H, Calcium 8.0 L Current Medications Acetaminophen (Tylenol) 650 mg PO Q6H PRN PRN PRN Reason: Mild Pain (1-3)/Temp > 100.7 F Last Admin: 05/12/17 10:50 Dose: 650 mg Sodium Chloride () 1,000 mls @ 125 mls/hr IV .Q8H [facility] Last Admin: 05/13/17 06:31 Dose: 125 mls/hr Ciprofloxacin (Cipro) 400 mg in 200 mls @ 200 mls/hr IV Q12 [facility] Last Admin: 05/12/17 21:57 Dose: 200 mls/hr Metronidazole (Flagyl) 500 mg in 100 mls @ 100 mls/hr IV Q8 [facility] Last Admin: 05/13/17 06:31 Dose: 100 mls/hr Mesalamine (Lialda) 2.4 gm PO DAILY [facility] Last Admin: 05/12/17 09:41 Dose: 2.4 gm Methylprednisolone (Solu-Medrol) 40 mg IV Q8 [facility] Last Admin: 05/13/17 06:31 Dose: 40 mg Nutritional Formula (Lactose Free) (Ensure Clear) 120 ml PO 4X/DAY [facility] Last Admin: 05/12/17 21:58 Dose: Not Given Ondansetron HCl (Zofran) 4 mg IV Q6H PRN PRN PRN Reason: NAUSEA Last Admin: 05/10/17 18:54 Dose: 4 mg Pantoprazole Sodium (Protonix) 40 mg PO DAILY [facility] Last Admin: 05/12/17 10:51 Dose: 40 mg Sodium Chloride () 5 - 30 ml IV UD PRN PRN Reason: SALINE FLUSH Last Admin: 05/12/17 06:03 Dose: 10 ml Tramadol HCl (Ultram (G)) 50 mg PO TID PRN PRN PRN Reason: MODERATE PAIN (4-5/10) Last Admin: 05/12/17 16:09 Dose: 50 mg Assessment/Plan Active and Suspected Problems Exacerbation of ulcerative colitis (Acute) Nausea and vomiting (Acute) Diarrhea (Acute) Blood in stool (Acute) 1. exacerbation of UC minimal improvement prednisone add empiric cipro, flagyl on mesalamine symptoms have been going on for 1 month anticipate, upon discharge, pred 40 w/o taper until sees GI (Tatiana at [facility]) Pt does have a today, I told I could discharge her, but told her I am concerned that she may wind up back in the hospital. I recommended she stay, she agreed to stay with small bowel involvement, could this Crohn's. Won't change anything at this time, however. 2. Liver lesion previously present on imaging. outpt MRI maybe a cyst 3. severe sepsis not POA, but did develop during hospitalization d/t #1 clinically resolved 4. DVT proph: SCDs. Chemical prophylaxis contraindicated w hematochezia. Discharge today. Follow up with Dr. Simpson, or other plastic printer.
--- NOTE | 2017-05-13 08:31 | PCM.DC ---
- Discharge Diagnoses Current Active Problems: Current Active and Chronic Problems Exacerbation of ulcerative colitis (Acute) Nausea and vomiting (Acute) Diarrhea (Acute) Blood in stool (Acute) You will use the following diet at home:: Other - bland, advance as tolerated. Your food should be the consistency of: Regular Your liquids should be the consistency of: Regular/Thin Discharge Activity: Return to Normal Activity Call your doctor if you observe: Fever of 101 or Higher, - - worsening abdominal pain. worsening blood in stool. worsening diarrhea Allergies/Adverse Reactions: Allergies amoxicillin trihydrate [From Augmentin] Adverse Reaction (Verified 05/10/17 13:26) Nausea/Vom/Diarrhea avocado Adverse Reaction (Verified 05/10/17 13:26) Nausea/Vom/Diarrhea potassium clavulanate [From Augmentin] Adverse Reaction (Verified 05/10/17 13:26) Nausea/Vom/Diarrhea Medications to take at Discharge Lactobacillus Combo No.10 [Probiotic] 1 each PO DAILY 12/22/15 Multivit with Calcium,Iron,Min [Multiple Vitamins For Women] 1 each PO DAILY 12/22/15 Desogestrel-Ethinyl Estradiol [Apri 28 Day Tablet] 1 tab PO DAILY 05/10/17 Mesalamine [Lialda] 2.4 gm PO DAILY 14 Days #14 tab 05/11/17 Ciprofloxacin [Cipro] 500 mg PO BID #12 tab 05/13/17 Dicyclomine HCl [Bentyl] 10 mg PO ACHS PRN #20 cap 05/13/17 Metronidazole [Flagyl] 500 mg PO TID #18 tab 05/13/17 Ondansetron HCl [Zofran] 8 mg PO TID PRN #15 tab 05/13/17 Prednisone 2 tab PO DAILY #60 tab 05/13/17 The following prescriptions were given: Dicyclomine HCl [Bentyl] 10 mg PO ACHS PRN #20 cap PRN Reason: abdominal cramps Mesalamine [Lialda] 2.4 gm PO DAILY 14 Days #14 tab Prednisone 2 tab PO DAILY #60 tab Ciprofloxacin [Cipro] 500 mg PO BID #12 tab Metronidazole [Flagyl] 500 mg PO TID #18 tab Ondansetron HCl [Zofran] 8 mg PO TID PRN #15 tab PRN Reason: nausea vomiting Primary Care Physician: Johnson,Carlton, DO [Primary Care Provider] - Within 2 Weeks Please Follow Up With: Glenroy Gonzales MD When: 2-4 weeks. (May try [facility] for gastroenterology [phone]) When: Also, [facility] in [place] [phone] Proposed Discharge Date: 05/13/17
--- NOTE | 2017-05-13 08:36 | DCINST_ITS ---
- Discharge Diagnoses Current Active Problems: Current Active and Chronic Problems Exacerbation of ulcerative colitis (Acute) Nausea and vomiting (Acute) Diarrhea (Acute) Blood in stool (Acute) You will use the following diet at home:: Other - bland, advance as tolerated. Your food should be the consistency of: Regular Your liquids should be the consistency of: Regular/Thin Discharge Activity: Return to Normal Activity Call your doctor if you observe: Fever of 101 or Higher, - - worsening abdominal pain. worsening blood in stool. worsening diarrhea Allergies/Adverse Reactions: Allergies amoxicillin trihydrate [From Augmentin] Adverse Reaction (Verified 05/10/17 13: 26) Nausea/Vom/Diarrhea avocado Adverse Reaction (Verified 05/10/17 13:26) Nausea/Vom/Diarrhea potassium clavulanate [From Augmentin] Adverse Reaction (Verified 05/10/17 13:26 ) Nausea/Vom/Diarrhea Medications to take at Discharge Lactobacillus Combo No.10 [Probiotic] 1 each PO DAILY 12/22/15 Multivit with Calcium,Iron,Min [Multiple Vitamins For Women] 1 each PO DAILY 08/01 Desogestrel-Ethinyl Estradiol [Apri 28 Day Tablet] 1 tab PO DAILY 05/10/17 Mesalamine [Lialda] 2.4 gm PO DAILY 14 Days #14 tab 05/11/17 Ciprofloxacin [Cipro] 500 mg PO BID #12 tab 05/13/17 Dicyclomine HCl [Bentyl] 10 mg PO ACHS PRN #20 cap 05/13/17 Metronidazole [Flagyl] 500 mg PO TID #18 tab 05/13/17 Ondansetron HCl [Zofran] 8 mg PO TID PRN #15 tab 05/13/17 Prednisone 2 tab PO DAILY #60 tab 05/13/17 The following prescriptions were given: Dicyclomine HCl [Bentyl] 10 mg PO ACHS PRN #20 cap PRN Reason: abdominal cramps Mesalamine [Lialda] 2.4 gm PO DAILY 14 Days #14 tab Prednisone 2 tab PO DAILY #60 tab Ciprofloxacin [Cipro] 500 mg PO BID #12 tab Metronidazole [Flagyl] 500 mg PO TID #18 tab Ondansetron HCl [Zofran] 8 mg PO TID PRN #15 tab PRN Reason: nausea vomiting Primary Care Physician: Johnson,Carlton, DO [Primary Care Provider] - Within 2 Weeks Please Follow Up With: Glenroy Gonzales MD When: 2-4 weeks. (May try [facility] for gastroenterology [phone]) When: Also, [facility] in [place] [phone] Proposed Discharge Date: 05/13/17
--- NOTE | 2017-05-13 08:36 | PCM.DC.SUM ---
Discharge Date and Diagnosis - Problem List Patient Problems: Active and Suspected Problems Exacerbation of ulcerative colitis (Acute) Nausea and vomiting (Acute) Diarrhea (Acute) Blood in stool (Acute) Date of Admission: 05/10/17 Date of Discharge: 05/13/17 - Primary Discharge Diagnosis Active and Suspected Problems Exacerbation of ulcerative colitis (Acute) Nausea and vomiting (Acute) Diarrhea (Acute) Blood in stool (Acute) Hospital Course and Treatment Imaging Results: Clinical Impression(s) from Imaging Studies Abdomen/Pelvis CT 05/10/17 15:35 IMPRESSION: Mild nonspecific enteritis in association with mesenteric lymphadenitis. No definitive evidence for small bowel obstruction. Mild thickening of the mauricio of the sigmoid colon consistent with inflammatory bowel disease although no evidence for acute inflammatory stranding at this time Incidental note made of a nodule in the left lobe of the liver which on current exam demonstrates attenuation characteristics higher than simple cyst which appears cystic on prior exam. The lesion has also decreased in size since that time. This may represent a complex cyst MRI would be helpful for further evaluation if clinically warranted. Electronically Signed: Maico Rodney MD at 16:24 EST , Service support , Operations: None Procedures: None Summary of Care Provided: The patient is a 27 year old F presents with a flare of ulcerative colitis. Had been going on for some time prior to this admission and had been on rounds of steroids antibiotics and just persistently got worse. Patient had a CAT scan that showed colonic inflammation as well as some enteritis and lymphadenitis. Patient was started on steroids of Solu-Medrol and as well as mesalamine. Patient has improved overall. Given the enteritis of question the actual diagnosis of ulcerative colitis and would wonder if it would be something like Crohn's disease. Nonetheless patient will be on prednisone 40 mg daily. Patient will be following up with gastroenterology. Patient previously had been seeing Dr. Gonzales when he was in the [place] area but she plans on following up with him but I will provide her some numbers in [facility] that she may follow-up if that works out for her. Patient will also be on ciprofloxacin and Flagyl to empirically treat any kind of secondary infection versus developing infection given the colitis she she that she does have. Patient technically was severe sepsis upon arrival is alert related with her colitis infectious versus inflammatory combination of the 2. That has resolved. [] Discharge Diet: - - bland, advnce as tolerated Discharge Activity: Return to Normal Activity Call your doctor if you observe: Fever of 101 or Higher, - - worsening abdominal pain. worsening blood in stool. worsening diarrhea Home Medications: Medications to take at Discharge Lactobacillus Combo No.10 [Probiotic] 1 each PO DAILY 12/22/15 Multivit with Calcium,Iron,Min [Multiple Vitamins For Women] 1 each PO DAILY 12/22/15 Desogestrel-Ethinyl Estradiol [Apri 28 Day Tablet] 1 tab PO DAILY 05/10/17 Mesalamine [Lialda] 2.4 gm PO DAILY 14 Days #14 tab 05/11/17 Ciprofloxacin [Cipro] 500 mg PO BID #12 tab 05/13/17 Dicyclomine HCl [Bentyl] 10 mg PO ACHS PRN #20 cap 05/13/17 Metronidazole [Flagyl] 500 mg PO TID #18 tab 05/13/17 Ondansetron HCl [Zofran] 8 mg PO TID PRN #15 tab 05/13/17 Prednisone 2 tab PO DAILY #60 tab 05/13/17 Following Prescrptions Were Given to Patient: Dicyclomine HCl [Bentyl] 10 mg PO ACHS PRN #20 cap PRN Reason: abdominal cramps Mesalamine [Lialda] 2.4 gm PO DAILY 14 Days #14 tab Prednisone 2 tab PO DAILY #60 tab Ciprofloxacin [Cipro] 500 mg PO BID #12 tab Metronidazole [Flagyl] 500 mg PO TID #18 tab Ondansetron HCl [Zofran] 8 mg PO TID PRN #15 tab PRN Reason: nausea vomiting Primary Care Physician: Carlton Johnson DO [Primary Care Provider] - Within 2 Weeks Please Follow Up With: Glenroy Gonzales MD When: 2-4 weeks. (May try [facility] for gastroenterology [phone]) When: Also, [facility] in [place] [phone] Disposition: Home Minutes spent on discharge:: 32 Patient Condition:: Good Meaningful Use Info Meaningful Use Diagnoses (Choose all that apply): None applicable Code Visit Inpatient E&M: 69309 Disch Hosp
--- NOTE | 2017-05-13 08:41 | DS.PCM_ITS ---
Discharge Date and Diagnosis - Problem List Patient Problems: Active and Suspected Problems Exacerbation of ulcerative colitis (Acute) Nausea and vomiting (Acute) Diarrhea (Acute) Blood in stool (Acute) Date of Admission: 05/10/17 Date of Discharge: 05/13/17 - Primary Discharge Diagnosis Active and Suspected Problems Exacerbation of ulcerative colitis (Acute) Nausea and vomiting (Acute) Diarrhea (Acute) Blood in stool (Acute) Hospital Course and Treatment Imaging Results: Clinical Impression(s) from Imaging Studies Abdomen/Pelvis CT 05/10/17 15:35 IMPRESSION: Mild nonspecific enteritis in association with mesenteric lymphadenitis. No definitive evidence for small bowel obstruction. Mild thickening of the mauricio of the sigmoid colon consistent with inflammatory bowel disease although no evidence for acute inflammatory stranding at this time Incidental note made of a nodule in the left lobe of the liver which on current exam demonstrates attenuation characteristics higher than simple cyst which appears cystic on prior exam. The lesion has also decreased in size since that time. This may represent a complex cyst MRI would be helpful for further evaluation if clinically warranted. Electronically Signed: Maico Rodney MD at 16:24 EST , Service support , Operations: None Procedures: None Summary of Care Provided: The patient is a 27 year old F presents with a flare of ulcerative colitis. Had been going on for some time prior to this admission and had been on rounds of steroids antibiotics and just persistently got worse. Patient had a CAT scan that showed colonic inflammation as well as some enteritis and lymphadenitis. Patient was started on steroids of Solu-Medrol and as well as mesalamine. Patient has improved overall. Given the enteritis of question the actual diagnosis of ulcerative colitis and would wonder if it would be something like Crohn's disease. Nonetheless patient will be on prednisone 40 mg daily. Patient will be following up with gastroenterology. Patient previously had been seeing Dr. Gonzales when he was in the [place] area but she plans on following up with him but I will provide her some numbers in [facility] that she may follow-up if that works out for her. Patient will also be on ciprofloxacin and Flagyl to empirically treat any kind of secondary infection versus developing infection given the colitis she she that she does have. Patient technically was severe sepsis upon arrival is alert related with her colitis infectious versus inflammatory combination of the 2. That has resolved. [] Discharge Diet: - - bland, advnce as tolerated Discharge Activity: Return to Normal Activity Call your doctor if you observe: Fever of 101 or Higher, - - worsening abdominal pain. worsening blood in stool. worsening diarrhea Home Medications: Medications to take at Discharge Lactobacillus Combo No.10 [Probiotic] 1 each PO DAILY 12/22/15 Multivit with Calcium,Iron,Min [Multiple Vitamins For Women] 1 each PO DAILY 08/01 Desogestrel-Ethinyl Estradiol [Apri 28 Day Tablet] 1 tab PO DAILY 05/10/17 Mesalamine [Lialda] 2.4 gm PO DAILY 14 Days #14 tab 05/11/17 Ciprofloxacin [Cipro] 500 mg PO BID #12 tab 05/13/17 Dicyclomine HCl [Bentyl] 10 mg PO ACHS PRN #20 cap 05/13/17 Metronidazole [Flagyl] 500 mg PO TID #18 tab 05/13/17 Ondansetron HCl [Zofran] 8 mg PO TID PRN #15 tab 05/13/17 Prednisone 2 tab PO DAILY #60 tab 05/13/17 Following Prescrptions Were Given to Patient: Dicyclomine HCl [Bentyl] 10 mg PO ACHS PRN #20 cap PRN Reason: abdominal cramps Mesalamine [Lialda] 2.4 gm PO DAILY 14 Days #14 tab Prednisone 2 tab PO DAILY #60 tab Ciprofloxacin [Cipro] 500 mg PO BID #12 tab Metronidazole [Flagyl] 500 mg PO TID #18 tab Ondansetron HCl [Zofran] 8 mg PO TID PRN #15 tab PRN Reason: nausea vomiting Primary Care Physician: Carlton Johnson DO [Primary Care Provider] - Within 2 Weeks Please Follow Up With: Glenroy Gonzales MD When: 2-4 weeks. (May try [facility] for gastroenterology [phone]) When: Also, [facility] in [place] [phone] Disposition: Home Minutes spent on discharge:: 32 Patient Condition:: Good Meaningful Use Info Meaningful Use Diagnoses (Choose all that apply): None applicable Code Visit Inpatient E&M: 04082 Disch Hosp
== END 2017-05-13 09:45 | disposition home or self-care (01) | DRG 872 ==
LOC: ED 14:37 → MS2 17:55
PROVIDERS: Internal Medicine; Admitting Provider Internal Medicine; Emergency Provider Emergency Medicine; Family Provider Student in an Organized Health Care Education/Training Program; PCP Student in an Organized Health Care Education/Training Program
DX: A41.9 Sepsis, unspecified organism (principal); K51.911 Ulcerative colitis, unspecified with rectal bleeding; R65.20 Severe sepsis without septic shock; E87.6 Hypokalemia; R51 Headache; K76.9 Liver disease, unspecified
CPT/HCPCS: 36415; 74177; 80048; 80053; 81001; 83605; 84703; 85025; 85027; 85610; 85730; 87040; 87493; 87506; 97802; 99281; J7030; Q9967; A4216; J0744; J2405

== ENCOUNTER 2017-05-17 02:57 | Emergency (ER) | payer SELFPAY ==
[2017-05-17 02:58] VITALS: BP 105/58; PULSE 115; RESP 22; TEMP 36.2; O2SAT 100; BMI 24.3
[2017-05-17] MEDS: 0.9% Normal Saline 1,000 ML 1000 ML IV ×2 (03:21→04:49)
[2017-05-17 03:22] VITALS: BP 90/45; BP 90/53; PULSE 69; PULSE 91
[2017-05-17 03:23] LABS: Absolute Lymphocyte Count 2.45 X10^3/ul (0.83-4.51); Absolute Neutrophil Count 13.2 X10^3/uL (2.0-7.7); Basophil# 0.02 X10^3/uL; Basophil% 0.1 % (0-1); Eosinophil# 0.06 X10^3/uL; Eosinophils% 0.4 % (0-5); Hematocrit 36.2 % (37-47); Hemoglobin 11.7 g/dl (12.0-15.0); Lymphocyte # 2.45 X10^3/ul (4.0); Lymphocyte % 15.3 % (19-41); Mean Corp Hgb Conc 32.3 g/gl (32-36); Mean Corpuscular Volume 95.8 fL (81-99); Mean Platelet Vol. 8.7 fl (6.2-12.0); Monocyte% 1.2 % (0-10); Neutrophil # 13.21 X10^3/uL (2.7-7.7); Neutrophil % 82.4 % (47-70); Platelet Count 342 K/mm3 (150-450); RBC Distribution Width CV 12.9 % (11.6-14.6); RBC Distribution Width SD 43.1 fl (35.1-43.9); Red Blood Count 3.78 M/mm3 (4.2-5.4)
[2017-05-17 03:29] LABS: Anion Gap 10 (5-15); BUN 11 mg/dL (7-18); BUN/Creat Ratio 10.8 RATIO (10-20); Chloride 100 mmol/L (98-107); Creatinine, Serum 1.02 mg/dL (0.55-1.02); EST Glomerular Filtration Rate 68 mL/min (>60); Est Glom Filt Rate - Afr Amer 82 mL/min (>60); Estimated Creatinine Clearance 79.14 ml/min; Glucose 120 mg/dL (74-106); POSITIVE COUNT NO; POSITIVE DIFFERENTIAL NO; POSITIVE MORPHOLOGY NO; Potassium 3.2 mmol/L (3.5-5.1); Sodium Level 138 mmol/L (136-145)
[2017-05-17] MEDS: Ondansetron 4 MG/2 ML Vial IV (04:10)
[2017-05-17 04:13] VITALS: BP 101/88; PULSE 80; RESP 18; O2SAT 100
[2017-05-17 04:50] VITALS: BP 82/49; PULSE 89; RESP 18; O2SAT 97
[2017-05-17 05:48] VITALS: BP 93/61; PULSE 79; RESP 14
--- NOTE | 2017-05-17 05:50 | ED.VISSUMM ---
- ER Visit Summary Date of Service: 05/17/17 Chief Complaint: Confusion, abdominal pain with hematochezia and profuse watery diarrhea. History of Present Illness: The patient is a 27 F who presents because of near syncope, profuse diarrhea with blood and apparent confusion. She was admitted on May 10 and diagnosed with exacerbation of ulcerative colitis. Her CT report does not support an acute flare of ulcerative colitis. There is evidence of concentric thickening of the sigmoid colon consistent with prior flares. There was mild enteritis noted with lymphadenopathy. She states she had an elevated temperature at home. The near syncopal episode occurred while having diarrhea. She denies headache, visual, ocular or auditory symptoms. She denies any cardiovascular respiratory symptoms. GI was positive for abdominal pain, nausea and diarrhea. She has since developed low back pain. She states she has had problems with back pain since she was prescribed the prednisone and Asacol. She denies any skin lesions. She denies any joint pain or swelling. She does complain of generalized weakness. Her gastroneurologist Dr. Gonzales. She has not seen Dr. Gonzales one year. She had biopsy-proven ulcerative colitis. He has not seen Dr. Espinoza in 1 year. She was treated with Asacol, prednisone, ciprofloxacin and metronidazole for enteritis. Enteric pathogen panel was negative. Stool for C. difficile toxin was negative. Physical Examination: She seems groggy and slightly confused. Head is atraumatic normocephalic. Pupils equal round reactive. Extra muscle intact. There is no scleral icterus. TMs normal. Glucose is plus minus moist. Heart is regular without murmur, gallop or rub. Lungs are clear to auscultation. Abdomen is minimally tender. Bowel sounds are present. There is no guarding or rebound tenderness noted. There is no skin lesions noted. There is no swelling of the joints or anterior right and left leg. Neuro exam is nonfocal. Test Results: Count is elevated 16,000 with 82 segs no bands. This could be secondary to prednisone. Hemoglobin has increased from 9.9 on 225-11.7. Her hemoglobin was elevated when she was admitted on the after hydration decreased. Electrode panel is remarkable for a potassium of 3.2 and glucose of 120. Orthostatic vitals were negative. She could not stand because of back pain. Emergency Department Course and Treatment: IV was established. 1 L of normal saline was administered. A second liter was administered since she did not void. She was medicated with morphine and Zofran for her back pain. The patient and her look perplexed when I informed her that the CAT scan did not reveal an acute flare of ulcerative colitis. The report was copied and given to them. Reviewed the results. There is evidence of mild enteritis with lymphadenopathy. There is evidence of concentric thickening of the sigmoid colon consistent with individual who has history of ulcerative colitis. There was no evidence of acute flare of her colitis. She also was told that there is no evidence of infectious diarrhea since the enteric pathogen panel was negative. Because she reported bright red blood and no one had apparently performed a rectal exam and an anoscopy was performed. The anal and rectal mucosa appeared normal with the exception of a external hemorrhoid noted at 5:00 lithotomy position. Stool was dark green in color. Treatment Plan: Recommended that she contact Dr. Gonzales or could follow up with Dr. Luis Gaston who is a anaesthesiologist in [facility]. Disposition: Discharge to home Impression: 1. Near syncopal episode 2. Diarrhea 3. Hematochezia secondary to external hemorrhoid 4. Hemoconcentration secondary to dehydration, moderate 5. Hypokalemia This note was generated with [employer] dictation software. It may contain incorrect words, spelling, and punctuation that were not noted in review of the chart prior to signing ED Disposition - Plan for ED Patient: Disposition: Home or Assisted Living Chief Complaint: Syncope Instructions: ED Diarrhea Viral, ED Hemorrhoids, ED Potassium Deficiency, ED Near Syncope Vasovagal Referrals: Carlton Johnson DO [Primary Care Provider] - 3-5 Days if not improving Luis Gaston MD [STAFF PHYSICIAN] - 1 Week
[2017-05-17 06:04] VITALS: BP 96/61; PULSE 84; RESP 15
== END 2017-05-17 07:00 | disposition home or self-care (01) ==
PROVIDERS: Emergency Provider Emergency Medicine; Family Provider Student in an Organized Health Care Education/Training Program; PCP Student in an Organized Health Care Education/Training Program
DX: R55 Syncope and collapse (principal); R19.7 Diarrhea, unspecified; K64.4 Residual hemorrhoidal skin tags; K92.1 Melena; E86.0 Dehydration; E87.6 Hypokalemia; K51.90 Ulcerative colitis, unspecified, without complications; Z79.899 Other long term (current) drug therapy
CPT/HCPCS: 46600; 80048; 85025; 96361; 96374; 96375; 99285; J7030; A4216; J2405